=== PATIENT | female | born 1960 | race Caucasian/White ===

== ENCOUNTER → 2017-04-07 | Outpatient (CLI) | payer OTHER | LOC: FIMAGING 10:18 | PROVIDERS: ATTEND Internal Medicine | DX: R91.1 Solitary pulmonary nodule (principal); M54.6 Pain in thoracic spine; Z72.0 Tobacco use ==

== ENCOUNTER → 2017-08-19 | Outpatient (CLI) | payer OTHER | LOC: FIMAGING 10:23 | PROVIDERS: ATTEND Obstetrics & Gynecology | DX: Z12.31 Encounter for screening mammogram for malignant neoplasm of breast (principal); Z80.3 Family history of malignant neoplasm of breast | CPT/HCPCS: G0202 ==

== ENCOUNTER 2018-07-30 11:22 | Observation (INO) | payer OTHER ==
[2018-07-30] MEDS ORDERED: DIAZEPAM 10 MG/2 ML SYR IVP ONE ×2 (12:07→12:33)
[2018-07-30] MEDS ORDERED: DIAZEPAM 5 MG/ML 1 ML SYR ONE ×2 (12:29→12:30)
--- NOTE | 2018-07-30 12:42 | EDPHY ---
H & P Time Seen by Provider: 07/30/18 11:44 HPI/ROS: HPI Shortness of breath. High blood pressure. 57-year-old female by private vehicle with her . This patient reports that she woke up at 4:00 a.m. With a sensation of feeling short of breath. She states that this is somewhat worse when she lays flat. She reports that she took her blood pressure and this was high. She took her standard dose of Diovan which is 80 mg and 12.5 mg. She reports that she still felt the symptoms at 8:00 a.m. And took another dose of this medication. She was on her way to the airport with her . She felt short of breath and lightheaded and described having chest tightness in her mid anterior chest. They came to the emergency department and canceled their flight for the day. No associated chest pain. No leg pain or swelling. Cardiac risk factors include age and hypertension. The patient also reports that she is feeling anxious. ROS: Constitutional: No fever, no chills. No weakness. Eyes: No discharge. No changes in vision. ENT: No sore throat. No nasal congestion or rhinorrhea. Respiratory: No cough. As above. Cardiac: As above, no palpitations. Gastrointestinal: No abdominal pain, no vomiting, no diarrhea. Genitourinary: No hematuria. No dysuria or increased frequency with urination. Musculoskeletal: No back pain. No neck pain. No myalgias or arthralgias. Skin: No rashes. Neurological: No headache. No focal weakness or altered sensation. Past medical history: Hypertension, tachycardia with history of ablation, Lyme disease, spinal stenosis, uterine fibroids, herniated disc in her neck, melanoma. Primary care physician is Dr. Crista Stapleton. Social history: Nonsmoker. Social alcohol. Here with her . Physical Exam: General Appearance: Alert, no distress, mildly anxious. This patient is responding to questions appropriately and in full sentences. This patient appears well-hydrated and well-nourished. Eyes: Pupils equal and round no pallor or injection. No lid edema, erythema or injection. Respiratory: There are no retractions, lungs are clear to auscultation with good air movement bilaterally. Cardiovascular: Regular rate and rhythm. No murmur appreciated. Gastrointestinal: Abdomen is soft and nontender, no masses, bowel sounds normal. No focal tenderness at McBurney's point. No Harman sign. Neurological: Motor sensory function is grossly intact. Cranial nerves are normal. Gait is normal. Skin: Warm and dry, no rashes. Musculoskeletal: Neck is supple and nontender. Extremities are symmetrical. No significant lower extremity edema. All joints range without pain or impingement. Psychiatric: No agitation. No depression. Database: EKG: EKG time is 11:58 a.m.; EKG shows a narrow complex normal sinus rhythm with a ventricular rate of 87. The NV, QRS, QT intervals are within normal limits. Probable left atrial enlargement. QS waves noted in V1 and V2. There are no ST -T wave changes indicative of ischemic or injury pattern. No evidence of right heart strain. Interpreted by me. Imaging: Chest x-ray AP portable; the cardiac mediastinal silhouette is unremarkable. No evidence of infiltrate or pneumothorax. Peribronchial thickening suggestive of bronchitis. No other acute cardiopulmonary disease process noted. Interpreted by me. Procedures: Emergency department course: Triage vital signs reviewed. She is hypertensive with a blood pressure of 188/ 121. Vital signs are otherwise normal. IV was placed. She will be given 5 mg of IV Valium for anxiety. EKG obtained and reviewed by myself. 1:30 p.m., the patient was re-evaluated. Results of her diagnostic workup discussed with her. I discussed cardiac risk factors. I discussed admission with her. Her and her want to talk it over before they decide if she will be admitted or if they prefer to go home. 1:55 p.m., blood pressure currently 187/122. She will be given IV labetalol in 10 mg doses to bring her blood pressure down to 160 systolic and less than 100 diastolic. The patient does not feel comfortable going home. [place] [facility] Plan will be to admit her to the hospitalist service for observation and further management. Hospitalist paged. 2:00 p.m., I spoke with on-call hospitalist patient accepted for admission to telemetry observation by Dr. Escalona. I filled out the appropriate transfer paperwork. She likes ago by private vehicle with her who will take her. 2:50 p.m., the patient has had 20 mg of IV labetalol. Blood pressure is currently 148/104. patient monitor shows a narrow complex sinus rhythm with ventricular rate of 78. Her remaining emergency department course under my care has been uneventful. She was transferred by private vehicle with her to the [facility] in stable condition. Differential Diagnosis: The differential diagnosis on this patient includes but is not limited to anxiety reaction, CHF, uncontrolled hypertension. Acute coronary syndrome, pulmonary embolism unlikely. This represents a partial list of diagnoses considered. These considerations are based on history, physical exam, past history, reassessment and diagnostic testing. Smoking Status: Former smoker Constitutional: Initial Vital Signs Temperature (C) 36.5 C 07/30/18 11:35 Heart Rate 89 07/30/18 11:35 Respiratory Rate 18 07/30/18 11:35 Blood Pressure 188/121 H 07/30/18 11:35 O2 Sat (%) 98 07/30/18 11:35 O2 Delivery Mode Room Air Allergies/Adverse Reactions: amoxicillin trihydrate [From Augmentin] Allergy (Verified 07/30/18 11:38) azithromycin Allergy (Verified 07/30/18 11:38) potassium clavulanate [From Augmentin] Allergy (Verified 07/30/18 11:38) CONTRAST Allergy (Uncoded 07/30/18 11:38) Home Medications: Medication Instructions Recorded Acetaminophen [Tylenol 325mg (*)] 650 mg PO Q6 PRN 01/15/16 Calcium Carbonate [Oyster Shell 1,500 mg PO DAILY 01/15/16 Calcium 500 mg (*)] Cyclobenzaprine [Flexeril 10 MG 10 mg PO TID PRN 01/15/16 (*)] Herbals/Supplements -Info Only 1 ea PO DAILY 01/15/16 Nitroglycerin [Nitrostat 0.4 mg 0.4 mg SL Q5M PRN 01/15/16 (*)] [place]-3 Fatty Acids [Fish Oil 1000 1,000 mg PO DAILY 01/15/16 mg (*)] Valsartan/Hctz [Diovan Hct 80/12.5 1 each PO DAILY 01/15/16 mg (*)] EPINEPHrine KIT [Epipen Kit] 0.3 mg IM ONCE #1 inj 04/13/16 Medical Decision Making - Diagnostics Imaging Results: Imaging Impressions Chest X-Ray 07/30/18 11:45 Impression: Peribronchial thickening suggesting bronchitis without evidence of pneumonia. - Data Points Laboratory Results: 07/30/18 07/30/1807/30/18 12:21 12:20 12:10 POC Sodium 144 mEq/L mEq/L (135-145) POC Potassium 3.1 mEq/L L mEq/L (3.3-5.0) POC Chloride 101.0 mEq/L mEq/L (97-110) POC Total CO2 23 mEq/L mEq/L (22-31) POC BUN 11 mg/dL mg/dL (7-23) POC Creatinine 0.5 mg/dL L mg/dL (0.6-1.0) POC Glucose 94 mg/dL mg/dL (70-100) POC Calcium 9.6 mg/dL mg/dL (8.5-10.4) POC Troponin I 0.00 ng/mL ng/mL (0.00-0.08) NT-Pro-B Natriuret Pep 80 pg/mL pg/mL (0-125) Medications Given: Discontinued Medications Diazepam (Valium) 5 mg IVP EDNOW ONE Stop: 07/30/18 12:08 Last Admin: 07/30/18 12:45 Dose: Not Given Diazepam (Valium) 5 mg IVP EDNOW ONE Stop: 07/30/18 12:34 Last Admin: 07/30/18 12:45 Dose: 5 mg Labetalol HCl (Trandate Injection) 10 mg IVP EDNOW ONE Stop: 07/30/18 13:54 Last Admin: 07/30/18 14:09 Dose: 10 mg Point of Care Test Results: CBC CBC Collection Date 07/30/18 CBC Collection Time 12:10 WBC 5.7 RBC 5.27 HGB 16.9 HCT 47.4 PLT 329 Neut # 4.1 Neut 71.6 LYMPH # 1.2 LYMPH 21.1 Other WBC # 0.4 Other WBC 7.3 MCV 89.9 Chemistry 07/30/18 07/30/18 12:21 12:20 POC Sodium 144 mEq/L mEq/L (135-145) POC Potassium 3.1 mEq/L L mEq/L (3.3-5.0) POC Chloride 101.0 mEq/L mEq/L (97-110) POC Total CO2 23 mEq/L mEq/L (22-31) POC BUN 11 mg/dL mg/dL (7-23) POC Creatinine 0.5 mg/dL L mg/dL (0.6-1.0) POC Glucose 94 mg/dL mg/dL (70-100) POC Calcium 9.6 mg/dL mg/dL (8.5-10.4) POC Troponin I 0.00 ng/mL ng/mL (0.00-0.08) D-Dimer D-Dimer Collection Date 07/30/18 D-Dimer Collection Time 12:10 D-Dimer (ng/ml) <100 Departure - Departure Disposition: [facility] Inpatient Acute Clinical Impression: Uncontrolled hypertension, Dyspnea
[2018-07-30] MEDS ORDERED: LABETALOL HCL 5 MG/ML 20 ML MDV IVP ONE ×2 (13:53→14:41)
[2018-07-30] MEDS ORDERED: ACETAMINOPHEN 325 MG TAB PO PRN (16:31)
[2018-07-30] MEDS ORDERED: ONDANSETRON 4 MG/2 ML VIAL IVP PRN (16:31)
[2018-07-30] MEDS ORDERED: hydrALAZINE 20 MG/ML VIAL IVP PRN (16:33)
[2018-07-30] MEDS ORDERED: POTASSIUM CL 20 MEQ TAB PO ONE (16:33)
[2018-07-30] MEDS: amLODIPine BESYLATE 5 MG TAB PO SCH (17:28)
--- NOTE | 2018-07-30 17:59 | GHP ---
DATE OF ADMISSION: 07/30/2018 CHIEF COMPLAINT: Elevated blood pressure. Chest pressure. HISTORY OF PRESENT ILLNESS: This is a 57-year-old female with a known history of hypertension that i s fairly well controlled on Diovan. Her blood pressure usually runs in the 130 systolic. She is pre paring for a trip to the [facility] and woke up this morning not feeling well. She felt a bit short of breath and with a change of chest pressure. She took her blood pressure and it was quite elevated in the low 200s. She took her standard dose of Diovan and continued to feel symptoms. She then pre sented to the emergency department. In the emergency department, her initial blood pressure was 188/ 121. With a couple doses of labetalol, has come down to 150s. She is currently chest pain free. Sh e denies any dizziness, vision changes, headache, neurological changes. REVIEW OF SYSTEMS: A 10-point review of systems was obtained and was negative. PAST MEDICAL HISTORY: 1. Hypertension. 2. Elevated calcium score. 3. GERD. 4. Previous history of Lyme disease. 5. History of PSVT status post ablation. MEDICATIONS: Reviewed. SOCIAL HISTORY: Does drink 3 glasses of wine nightly. She admits to poor sleep. She denies any sig nificant worsening stressors. FAMILY HISTORY: Melanoma, hypertension, cancer. PHYSICAL EXAM: VITAL SIGNS: Afebrile, blood pressure is 170/100. Heart rate 76, oxygen saturation 95% on room air. GENERAL: The patient is well developed, in no apparent distress. HEENT: Nonicter ic sclerae. Extraocular movements intact. Moist mucous membranes. NECK: Supple. No thyromegaly. LUNGS: Good effort. Clear to auscultation bilaterally. CARDIOVASCULAR: Regular rate and rhythm. No murmurs, rubs, or gallops. ABDOMEN: Positive bowel sounds. Soft, nontender, nondistended. No hepatosplenomegaly. EXTREMITIES: No clubbing, cyanosis, or edema. SKIN: Without rash. Warm, inta ct. NEUROLOGIC: Alert and oriented x3. Moving all 4 extremities equally. PSYCH: Normal affect. LABS: We have a POC chemistry that shows potassium a little bit low at 3.1, creatinine 0.5. Troponi n negative. EKG personally reviewed and interpreted. Shows normal sinus rhythm with no ischemic adia nges. ASSESSMENT: This is a 57-year-old female, presenting with uncontrolled hypertension. PLAN: 1. Uncontrolled hypertension. Her blood pressure at baseline does not seem to be completely perfect ly controlled as at the lowest it is probably 130 systolic. So I think there is some room chronicall y to bring this down. She is on Diovan hydrochlorothiazide and her potassium is actually on the low side with that and so I would not want to increase the hydrochlorothiazide component. I am not sure increasing the valsartan to about 160 or even 320 is going to bring the blood pressure down enough. I think that I am going to separate out the Diovan/hydrochlorothiazide and give her 160 of Diovan merrill ly, as well as 12.5 hydrochlorothiazide. I am going to add 5 mg of Norvasc too, to see if we can get any quicker blood pressure result. 2. I think that her alcohol consumption is probably driving her blood pressure. She also admits to a lot of poor sleep. There may be some underlying stress as well. If she does decide to quit drinki ng alcohol, maybe we can back down on her blood pressure medicines. 3. Chest pressure is probably due to strain. We will check a morning troponin. 4. Hypokalemia, will replace. /[id number]/MODL
[2018-07-30] MEDS: ONDANSETRON DISINTEGRATING 4 MG TAB PO PRN (19:14)
[2018-07-31 04:09] LABS: PLATELET COUNT 300 10^3/uL (150-400)
[2018-07-31] MEDS: ONDANSETRON DISINTEGRATING 4 MG TAB PO PRN (06:59)
[2018-07-31] MEDS ORDERED: NITROGLYCERIN 0.4 MG BTL SL PRN (07:08)
[2018-07-31] MEDS ORDERED: CYCLOBENZAPRINE 10 MG TAB PO PRN (08:50)
[2018-07-31] MEDS ORDERED: VALSARTAN 160 MG TAB PO SCH (09:00)
[2018-07-31] MEDS ORDERED: OMEGA-3 FATTY ACIDS 1,000 MG CAP PO SCH (09:00)
[2018-07-31] MEDS ORDERED: CALCIUM CARBONATE 500 MG TAB PO SCH (09:00)
[2018-07-31] MEDS ORDERED: HYDROCHLOROTHIAZIDE 25 MG TAB PO SCH (09:00)
[2018-07-31] MEDS ORDERED: ASPIRIN 81 MG CHEWABLE TAB PO SCH (09:00)
[2018-07-31] MEDS ORDERED: OLMESARTAN MEDOXOMIL 20 MG TAB PO SCH (09:15)
[2018-07-31] MEDS: amLODIPine BESYLATE 5 MG TAB PO SCH (09:34)
[2018-07-31] MEDS ORDERED: REGADENOSON 0.4 MG/5 ML SYR IVP ONE (11:55)
--- NOTE | 2018-07-31 11:56 | ECHO ---
[email or web address] [address] [address] Main: [phone] Fax: Transthoracic Echocardiogram Name: NICOLASA SLADE MR#: [id number] Study Date: 07/31/2018 Study Time: 11:00 AM Date of : 1960 Age: 57 year(s) Height: 162.6 cm (64 in.) Weight: 63.96 kg (141 lb.) BSA: 1.69 m2 Gender: Female Examination: Echo Indication: SOB/increased BP Image Quality: Good Contrast: Requested by: Crista Stapleton BP: 161 mmHg/98 mmHg Heart Rate: Rhythm: Indication: SOB/increased BP Procedure Staff Second Watch Sergeant: Thais Kwan RDCS Reading Physician: Jacinto Noble MD Requesting Provider: Conclusions: Normal global systolic LV function. The ejection fraction is estimated to be 60-65 %. Trivial mitral valve regurgitation. Trivial tricuspid valve regurgitation. Measurements: Chambers Valvular Assessment AV/MV Valvular Assessment TV/PV Normal Normal Normal Name Value Range Name Value Range Name Value Range Ao Veena (MM): 3.5 cm (2.2 cm-3.7 AV Vmax: 1.19 m/s (1 m/s-1.7 cm) m/s) IVSd (2D): 1.1 cm (0.6 cm-1.1 AV meanP mmHg ( - ) cm) MV E Vmax: 0.47 m/s ( - ) LVDd (2D): 4.1 cm (3.9 cm-5.3 MV A Vmax: 1.06 m/s ( - ) cm) MV E/A: 0.44 ( - ) LVDs (2D): 2.4 cm (2.1 cm-4 cm) LVPWd (2D): 0.8 cm ( - ) LVEF (MOD4): 64 % (>=55 %) EF Range: 60-65 % Continued Measurements: Chambers Valvular Assessment AV/MV Name Value Name Value LADs Lon.8 cm MV E' Septal: 0.06 m/s LA Area: 18.1 cm2 MV E/E' Septal: 8.40 MV E/E' Lateral: 11.90 Patient: NICOLASA SLADE Study Date: 07/31/2018 Page 1 of 2 11:00 AM Additional Vessels Name Value Ao Ascendin.6 cm Findings: Left Ventricle: Normal size left ventricle. No LV hypertrophy. Normal global systolic LV function. The ejection fraction is estimated to be 60-65 %. No regional wall motion abnormality. Normal diastolic LV function. E/a wave reversal.. Right Ventricle: Normal size right ventricle. Left Atrium: The left atrium is normal in size. Right Atrium: The right atrium is normal in size. Mitral Valve: The mitral valve is normal in appearance and function. Trivial mitral valve regurgitation. Aortic Valve: The aortic valve is normal in appearance and function. Tricuspid Valve: The tricuspid valve is normal in appearance and function. Trivial tricuspid valve regurgitation. Pulmonic Valve: Pulmonary valve not well visualized. Aorta: The aorta is normal. Pericardium: No pericardial effusion. (No Signature Object) Patient: NICOLSAA SLADE Study Date: 07/31/2018 Page 2 of 2 11:00 AM [id number]
[2018-07-31] MEDS ORDERED: OLMESARTAN MEDOXOMIL 20 MG TAB PO ONE (14:24)
[2018-07-31 16:41] VITALS: BP 148/88
--- NOTE | 2018-08-01 00:52 | CPR ---
PROCEDURE PERFORMED: Exercise treadmill MPI study. SUPERVISING CLERICAL MANAGER: Dr. Noble INDICATION FOR PROCEDURE: Known history of subclinical CAD based off cardiac calcium scoring, chest pressure. PRE: After obtaining informed consent, patient was placed on electrocardiogram. Initial EKG shows sinus rhythm, normal axis, with no significant ST or T-wave abnormalities. Patient denies having any chest pain, pressure or symptoms suggesting of ischemia. Initial blood pressure is 136/90, saturation 94%. STRESS: The patient was placed on exercise treadmill, following standard Broderick protocol following findings: 1. Patient exercised for 7 minutes and 29 seconds. 2. 8.6 METS. 3. Patient obtained a heart rate of 149 beats per minute, which was 91% of MPHR. 4. Patient had no significant ST shift at peak exercise suggesting of ischemia. 5. Patient had no symptoms during exercise suggesting of ischemia. 6. No arrhythmias were noted during rest, stress or recovery. 7. SpO2 greater than 90% throughout testing. 8. BP response rest 136/90, peak 200/98. 9. Test was stopped due to maximum effort. 10. Everett treadmill score of 7 placing her at low cardiovascular risk. RECOVERY: Patient recovered for 5 minutes, heart rate and BP returned back to baseline. The patient remained asymptomatic. Vital signs are stable. The patient was taken to Nuclear Medicine for post-stress imaging. IMPRESSION: A 57-year-old female with known history of subclinical CAD, undergoing exercise treadmill/MPI study for evaluation of ischemia. No ischemic changes noted on stress test suggesting of ischemia. No symptoms during exercise suggesting of ischemia. Everett treadmill score of 7, placing her at low cardiovascular risk. Results called to Dr. Stapleton of hospital services. /[id number]/MODL MTDD
--- NOTE | 2018-08-01 09:50 | GDS ---
DIAGNOSES: 1. Malignant hypertension, improving. 2. Dyslipidemia. 3. Positive calcium score. 4. Anxiety. PROCEDURES DONE: 1. Echocardiogram: Normal EF. 2. Nuclear stress test: Negative for ischemia. HOSPITAL COURSE: The patient is a 57-year-old woman with a history of hypertension who comes in with increasing shortness of breath. She was on her way to the airport this morning with her whe n she noted her blood pressure was elevated at 200/120. She had shortness of breath associated with this, and on their way to the airport they came to urgent care. She was admitted to the [facility] for observation. Her medications were adjusted. She had the above procedures, which showed n o evidence of heart disease. She continues to have elevated blood pressure, but I think she is safe to go home, and we can do some more adjustments as an outpatient. Her valsartan was discontinued and replaced with olmesartan and hydrochlorothiazide. She was also started on amlodipine 5 mg daily. T hese both can be increased. Another option if she continues to be out of control would be to add a b eta-renata in lieu of the amlodipine. She currently feels better although somewhat fatigued and has had no symptoms of chest pain or shortness of breath. CONDITION ON DISCHARGE: Good. PHYSICAL EXAMINATION: VITAL SIGNS: Show a O2 saturation of 95% on room air. Blood pressure 148/99. GENERAL: She is alert and oriented. HEART: Regular. DISCHARGE MEDICATIONS: Please see discharge medication form. FOLLOWUP: Se will follow up with our clinic next week. She can call over the weekend with elevated blood pressure. /[id number]/MODL
--- NOTE | 2018-08-01 18:59 | CPEKG ---
Test Reason : OPEN Blood Pressure : / mmHG Vent. Rate : 087 BPM Atrial Rate : 087 BPM P-R Int : 176 ms QRS Dur : 092 ms QT Int : 392 ms P-R-T Axes : 070 057 035 degrees QTc Int : 472 ms Sinus rhythm Probable left atrial enlargement Probable anteroseptal infarct, old Confirmed by Kj Nieves ([id number]) on 08/01/2018 6:58:15 PM Referred By: Confirmed By:Kj Nieves
== END 2018-07-31 16:39 | disposition home or self-care (01) ==
LOC: CED 11:22 → CEDHOLD 14:02 → F2W 16:20
PROVIDERS: ADMIT Internal Medicine; ATTEND Internal Medicine
DX: I10 Essential (primary) hypertension (principal); R06.00 Dyspnea, unspecified; R07.89 Other chest pain; E87.6 Hypokalemia; E83.52 Hypercalcemia; E78.5 Hyperlipidemia, unspecified; F41.9 Anxiety disorder, unspecified; Z85.820 Personal history of malignant melanoma of skin; Z87.891 Personal history of nicotine dependence; Z88.0 Allergy status to penicillin
CPT/HCPCS: 71045; 78451; 93005; 93306; 96374; 96375; 96376; 99285; A9500; G0378; 80048-PO; 84484-PO; J2785; J3360

== ENCOUNTER → 2018-08-12 | Outpatient (CLI) | payer OTHER | LOC: FIMAGING 08:43 | PROVIDERS: ATTEND Internal Medicine | DX: Z12.31 Encounter for screening mammogram for malignant neoplasm of breast (principal); Z80.3 Family history of malignant neoplasm of breast ==

== ENCOUNTER → 2018-11-16 | Outpatient (CLI) | payer OTHER | LOC: FIMAGING 08:32 | PROVIDERS: ATTEND Internal Medicine | DX: R91.1 Solitary pulmonary nodule (principal) ==